=== PATIENT | female | born 1990 ===

== ENCOUNTER 2018-06-16 13:12 | Emergency (ER) | payer MEDICAID ==
[2018-06-16 13:29] VITALS: BMI 36.5
[2018-06-16 13:54] VITALS: BP 129/67; PULSE 73; RESP 18; TEMP 98; O2SAT 100
--- NOTE | 2018-06-16 14:21 | ED PDOC ---
Arrival/HPI - General Historian: Patient - History of Present Illness Narrative History of Present Illness (Text): 06/16/18 14:10 28 y o female PMhx anemia presents to the ED c/o vaginal spotting post- intercourse. Pt states that late last night she was having intercourse and not iced she was bleeding after, states she wiped a few drops of blood with a tissue. Bleeding stopped on own. Pt also reports additional episode of vaginal spotting this but denies soaking pad. Reports positive test at home on 06/08/18, but states she has not established care during this current with an OB-STAFF CONSULTANT. Denies lightheadedness/dizziness, fever, chills, chest pain, palpitations, sob, n/v/d/c, abd pain, urinary complaints, or other symptoms currently. LMP 05/06/18. PMHx: anemia (not on iron therapy currently); denies being sickle cell carrier PObHx: , 5 term pregnancies delivered vaginally full term with no complications, spontaneous Ab at 5 mos gestation in 2014 PSurgHx: D+C for miscarriage in 2014 at 5 months gestation (pt unsure of etiology of miscarriage) Allergies: NKDA Home meds: vitamins Fam hx: DM and HTN in grandparents, mom has sickle cell disease Soc hx: denies smoking, EtOH or illicit drug use Primary OB: [facility], pt follows with server software engineer Time/Duration: 24 hours Symptom Onset: Sudden Symptom Course: Intermittent Quality: Unable to Describe Severity Level: Mild Activities at Onset: Significant Context: Home <Aydin Mauro - Last Filed: 06/16/18 17:54> <Jareth Lopez - Last Filed: 06/19/18 09:53> - General Chief Complaint: Female Genitourinary Past Medical History - Provider Review Nursing Documentation Reviewed: Yes - Travel History Have you recently traveled outside [place] w/in the past 3 mons?: No - Reproductive Currently : Yes - Psychiatric Hx Substance Use: No - Surgical History Other/Comment: x 6 c sections - Anesthesia Hx Anesthesia: Yes Hx Anesthesia Reactions: No Hx Malignant Hyperthermia: No <Aydin Mauro - Last Filed: 06/16/18 17:54> Family/Social History - Physician Review Nursing Documentation Reviewed: Yes Family/Social History: Diabetes, Hypertension, Other (Sickle cell disease in mother) Smoking Status: Never Smoked Hx Alcohol Use: Yes Frequency of alcohol use: Socially Hx Substance Use: No <Aydin Mauro - Last Filed: 06/16/18 17:54> Allergies/Home Meds <Aydin Mauro - Last Filed: 06/16/18 17:54> <Jareth Lopez - Last Filed: 06/19/18 09:53> Allergies/Adverse Reactions: Allergies No Known Allergies Allergy (Verified 06/16/18 13:29) Review of Systems - Physician Review All systems were reviewed & negative as marked: Yes - Review of Systems Constitutional: Fatigue. absent: Weight Change, Fevers Eyes: absent: Vision Changes ENT: absent: Hearing Changes, Tinnitus Respiratory: absent: SOB, Cough, Wheezing Cardiovascular: absent: Chest Pain, Palpitations, Edema, Calf Pain, ADAMS Gastrointestinal: absent: Abdominal Pain, Stool Changes, Constipation, Diarrhea, Nausea, Vomiting, Appetite Changes, Anorexia Genitourinary Female: Vaginal Bleeding. absent: Dysuria, Frequency, Hematuria, Urine Output Changes, Vaginal Discharge Musculoskeletal: absent: Arthralgias, Back Pain, Myalgias Skin: absent: Rash Neurological: absent: Headache, Dizziness Endocrine: absent: Diaphoresis Hemo/Lymphatic: absent: Adenopathy <Aydin Mauro - Last Filed: 06/16/18 17:54> Physical Exam Vital Signs Reviewed: Yes Vital Signs Temp Pulse Resp BP Pulse Ox 06/16/18 13:12 98 F 73 18 129/67 100 Temperature: Afebrile Blood Pressure: Normal Pulse: Regular Respiratory Rate: Normal Appearance: Positive for: Well-Appearing, Non-Toxic, Comfortable Pain Distress: None Mental Status: Positive for: Alert and Oriented X 3 - Systems Exam Head: Present: Atraumatic, Normocephalic Pupils: Present: PERRL Extroacular Muscles: Present: EOMI Conjunctiva: Present: Normal Mouth: Present: Moist Mucous Membranes Neck: Present: Normal Range of Motion. No: JVD, Lymphadenopathy Respiratory/Chest: Present: Clear to Auscultation, Good Air Exchange. No: Respiratory Distress, Accessory Muscle Use, Wheezes, Rales, Rhonchi Cardiovascular: Present: Regular Rate and Rhythm, Normal S1, S2. No: Murmurs, Rub, Gallop Abdomen: Present: Normal Bowel Sounds. No: Tenderness, Distention, Peritoneal Signs, Rebound, Guarding, Mass/Organomegaly Genitourinary/Pelvic Exam: Present: Normal External Genitalia, Vaginal Discharge (Normal physiologic discharge). No: Vaginal Bleeding, Vaginal Lesions, Adenexal Tenderness, Adenexal Mass, Cervical Motion Tendernes, Cervical os Closed, Odor Back: Present: Normal Inspection. No: CVA Tenderness Upper Extremity: Present: Normal Inspection, Normal ROM, NORMAL PULSES, Capillary Refill < 2s, Norm 2-Pt Discrimination. No: Cyanosis, Edema, Temperature Abnormalties Lower Extremity: Present: Normal Inspection, NORMAL PULSES, Normal ROM, Neurovascularly Intact, Capillary Refill < 2 s. No: Edema, CALF TENDERNESS, Temperature Abnormalties Neurological: Present: GCS=15, CN II-XII Intact, Speech Normal, Motor Func Grossly Intact, Normal Sensory Function, Gait Normal Skin: Present: Warm, Dry, Normal Color. No: Rashes Psychiatric: Present: Alert, Oriented x 3, Normal Insight, Normal Concentration <Aydin Mauro - Last Filed: 06/16/18 17:54> Vital Signs Temp Pulse Resp BP Pulse Ox 06/16/18 13:12 98 F 73 18 129/67 100 <Jareth Lopez - Last Filed: 06/19/18 09:53> Medical Decision Making ED Course and Treatment: 06/16/18 14:29 28 y o female PMhx anemia, presents with post-coital bleeding, hx positive test at home on 06/08/18. No active vaginal bleeding noted on speculum exam. Plan: -Labs -U/a, urine preg test -Transvaginal U/s Will continue to monitor. 06/16/18 15:43 Informed by equipment engineering technician that pt eloped from ED without signing AMA forms. Staff to contact pt by phone to return to ED. - RAD Interpretation Radiology Orders: 06/16/18 14:09 TRANSVAGINAL [US] Stat <Aydin Mauro - Last Filed: 06/16/18 17:54> - Lab Interpretations Microbiology Results: Microbiology Results 06/16/18 14:30 Urine,Clean Catch Urine Culture - Final 10-50,000 CFU/ML. MULTIPLE SPECIES. PROBABLE CONTAMINATION. Lab Results: 06/16/18 15:09 06/16/18 15:09 Lab Results 06/16/18 15:09: Beta HCG, Quant 1598.10 H 06/16/18 15:09: Sodium 138, Potassium 3.9, Chloride 106, Carbon Dioxide 26, Anion Gap 10, BUN 14, Creatinine 0.7, Est GFR ( Amer) > 60, Est GFR (Non- Af Amer) > 60, Random Glucose 96, Calcium 8.8, Total Bilirubin 0.3, AST 22, ALT 25, Alkaline Phosphatase 51, Total Protein 6.9, Albumin 3.8, Globulin 3.1, Albumin/Globulin Ratio 1.3 06/16/18 15:09: WBC 8.0, RBC 3.95, Hgb 11.4 L, Hct 35.0 L, MCV 88.6, MCH 28.9, MCHC 32.6, RDW 14.3, Plt Count 291, MPV 11.1 H, Gran % 69.8 H, Lymph % (Auto) 23.8, [place] % (Auto) 4.5, Eos % (Auto) 1.8, Baso % (Auto) 0.1, Gran # 5.59, Lymph # (Auto) 1.9, [place] # (Auto) 0.4, Eos # (Auto) 0.1, Baso # (Auto) 0.01 06/16/18 14:30: Urine Color Yellow, Urine Appearance Clear, Urine pH 6.0, Ur Specific [place] >= 1.030, Urine Protein Negative, Urine Glucose (UA) Negative, Urine Ketones Negative, Urine Blood Negative, Urine Nitrate Negative, Urine Bilirubin Negative, Urine Urobilinogen 0.2, Ur Leukocyte Esterase Trace H, Urine RBC Negative, Urine WBC 1 - 3, Ur Epithelial Cells 3 - 4, Urine Bacteria Few, Urine HCG, Qual Positive - RAD Interpretation Radiology Orders: 06/16/18 14:09 OB TRANSVAGINAL [US] Stat <Jareth Lopez - Last Filed: 06/19/18 09:53> - PA / JOURNEYMAN LEVEL ACOUSTIC ANALYST / Resident Statement / has examined the patient and agrees with the treatment plan. (28 yr old female p/w postcoital vaginal spotting. Well appearing in NAD. Eloped. Staff called pts family: they will tell pt to return.) <Jareth Lopez - Last Filed: 06/19/18 09:53> Disposition/Present on Arrival - Present on Arrival Any Indicators Present on Arrival: No History of DVT/PE: No History of Uncontrolled Diabetes: No Urinary Catheter: No History of Decub. Ulcer: No History Surgical Site Infection Following: None - Disposition Have Diagnosis and Disposition been Completed?: Yes Disposition Time: 15:00 <Aydin Mauro - Last Filed: 06/16/18 17:54> <Jareth Lopez - Last Filed: 06/19/18 09:53> - Disposition Diagnosis: , PCB (post coital bleeding), UTI (urinary tract infection) during Disposition: ELOPEMENT - ER ONLY Condition: UNKNOWN Forms: [employer] (Scottish)
[2018-06-16 14:46] LABS: HCG,QUALITATIVE URINE POSITIVE (NEGATIVE); URINE APPEARANCE CLEAR (CLEAR); URINE BILIRUBIN NEGATIVE (NEGATIVE); URINE BLOOD NEGATIVE (NEGATIVE); URINE COLOR YELLOW (YELLOW); URINE GLUCOSE (UA) NEGATIVE (NEGATIVE); URINE LEUKOCYTE ESTERASE TRACE Leu/uL (NEGATIVE); URINE PROTEIN NEGATIVE mg/dL (<30 mg/dL); URINE UROBILINOGEN 0.2 E.U./dL (<1 E.U./dL)
[2018-06-16 14:54] LABS: URINE BACTERIA FEW (NEG); URINE RBC NEGATIVE /hpf (0-2)
[2018-06-16 15:15] LABS: BASO # 0.01 K/mm3 (0.0-2.0); BASO % 0.1 % (0.0-3.0); EOS # 0.1 (0.0-0.7); EOS % 1.8 % (1.5-5.0); GRAN # 5.59 (1.4-6.5); GRAN % 69.8 % (50.0-68.0); HEMOGLOBIN 11.4 g/dL (12.0-16.0); LYMPH # 1.9 (1.2-3.4); LYMPH % 23.8 % (22.0-35.0); MEAN CELL VOLUME 88.6 fl (80.0-105.0); MEAN CORPUSCULAR HEMOGLOBIN 28.9 pg (25.0-35.0); MEAN CORPUSCULAR HGB CONC 32.6 g/dl (31.0-37.0); MEAN PLATELET VOLUME 11.1 fl (7.0-11.0); MONO # 0.4 (0.1-0.6); MONO % 4.5 % (1.0-6.0); RBC 3.95 10^6/uL (3.5-6.1); RED CELL DISTRIBUTION WIDTH 14.3 % (11.5-14.5)
--- NOTE | 2018-06-16 15:15 | US ---
Date of service: 06/16/2018 HISTORY: Hx , post-coital bleeding; last menstrual period 05/06/2018 suggesting 5 week 6 day gestation. COMPARISON: None available. TECHNIQUE: Transabdominal and transvaginal pelvic ultrasound was performed with longitudinal and transverse images submitted for interpretation. FINDINGS: UTERUS: Measures 10.1 x 5.7 x 8.0 cm. Normal in size and appearance. No fibroid or other mass lesion seen. ENDOMETRIUM: The endometrium appears abnormal. A small fluid collection with apparent decidual reaction is appreciated within the endometrial cavity measuring 0.4 x 0.4 x 0.4 cm with a mean sac diameter of 0.4 cm cyst. No pole or yolk sac is appreciated. Surrounding inhomogeneity is appreciated including a hypoechoic area surrounded by a band of markedly increased echogenicity with a total measuring up to 2.6 cm thickness. This may reflect gross chorionic hemorrhage or failure of gestation with retained products of conception. Clinically correlate further. Early viable intrauterine gestation is not completely excluded. An ectopic gestation is not clearly identified. CERVIX: No cervical abnormality identified. Cervical length measures 3.6 cm RIGHT OVARY: Measures 2.4 x 1.7 x 2.5 cm. No solid mass. Normal flow. LEFT OVARY: Measures 2.7 x 2.2 x 2.7 cm. No solid mass. Normal flow. FREE FLUID: No significant free fluid noted. OTHER FINDINGS: None. IMPRESSION: Abnormal intrauterine findings are identified as discussed above which could reflect early viable intrauterine gestation however no yolk sac or pole is defined at this time. Age of potential gestation, if viable, would be less than 5 weeks which may be concordant with LMP derived dates. Prominent gestational related hemorrhage may be present. Alternative diagnosis would be failure of gestation with prominent retained products of conception. No ectopic pattern demonstrated but this is not completely excluded either with pseudo gestational sac. Follow-up serial beta HCG analysis as well as one-week repeat transvaginal pelvic ultrasound.
[2018-06-16 15:31] LABS: ALB/GLOB RATIO 1.3 (1.1-1.8); ALBUMIN 3.8 g/dL (3.0-4.8); ALT/SGPT 25 U/L (7-56); AST/SGOT 22 U/L (14-36); BLOOD UREA NITROGEN 14 mg/dL (7-21); CALCIUM 8.8 mg/dL (8.4-10.5); GFR NON-AFRICAN AMERICAN > 60
== END 2018-06-16 15:45 | disposition left against medical advice (07) ==
LOC: ED 13:12
DX: O23.40 Unspecified infection of urinary tract in pregnancy, unspecified trimester (principal); N93.0 Postcoital and contact bleeding; Z3A.00 Weeks of gestation of pregnancy not specified

== ENCOUNTER 2018-06-16 16:28 | Emergency (ER) | payer MEDICAID ==
[2018-06-16 16:28] VITALS: BMI 36.5
--- NOTE | 2018-06-16 17:20 | ED PDOC ---
Arrival/HPI - General Historian: Patient - History of Present Illness Narrative History of Present Illness (Text): 06/16/18 17:41 28 y o female PMhx anemia presents to the ED c/o vaginal spotting post- intercourse. Pt states that late last night she was having intercourse and not iced she was bleeding after, states she wiped a few drops of blood with a tissue. Bleeding stopped on own. Pt also reports additional episode of vaginal spotting this but denies soaking pad. Reports positive test at home on 06/08/18, but states she has not established care during this current with an OB-DEVELOPMENTAL SERVICES WORKER. Denies lightheadedness/dizziness, fever, chills, chest pain, palpitations, sob, n/v/d/c, abd pain, urinary complaints, or other symptoms currently. LMP 05/06/18. Pt was worked up in ED earlier this afternoon, had bloodwork, U/a and Transvaginal U/s performed. Pt eloped at time from ED without signing AMA forms because she had to curing pickling packer her daughter from school. Was called by ED staff to return to ED for results. Not having further episodes of vaginal bleeding/spotting currently. PMHx: anemia (not on iron therapy currently); denies being sickle cell carrier PObHx: , 5 term pregnancies delivered vaginally full term with no complications, spontaneous Ab at 5 mos gestation in 2014 PSurgHx: D+C for miscarriage in 2014 at 5 months gestation (pt unsure of etiology of miscarriage) Allergies: NKDA Home meds: vitamins Fam hx: DM and HTN in grandparents, mom has sickle cell disease Soc hx: denies smoking, EtOH or illicit drug use Primary OB: [facility], pt follows with mural painter Time/Duration: Prior to Arrival Symptom Course: Resolved Context: Home <Aydin Mauro - Last Filed: 06/16/18 17:40> <Jareth Lopez - Last Filed: 06/19/18 13:03> - General Chief Complaint: Female Genitourinary Time Seen by Provider: 06/16/18 16:32 Past Medical History - Provider Review Nursing Documentation Reviewed: Yes - Travel History Have you recently traveled outside [place] w/in the past 3 mons?: No - Psychiatric Hx Substance Use: No - Surgical History Other/Comment: x 6 c sections - Anesthesia Hx Anesthesia: Yes Hx Anesthesia Reactions: No Hx Malignant Hyperthermia: No <Aydin Mauro - Last Filed: 06/16/18 17:40> Family/Social History - Physician Review Nursing Documentation Reviewed: Yes Family/Social History: No Known Family HX Smoking Status: Never Smoked Hx Alcohol Use: Yes Hx Substance Use: No <Aydin Mauro - Last Filed: 06/16/18 17:40> Allergies/Home Meds <Aydin Mauro - Last Filed: 06/16/18 17:40> <Jareth Lopez - Last Filed: 06/19/18 13:03> Allergies/Adverse Reactions: Allergies No Known Allergies Allergy (Verified 06/16/18 13:29) Review of Systems - Physician Review All systems were reviewed & negative as marked: Yes - Review of Systems Genitourinary Female: absent: Dysuria, Frequency, Urine Output Changes, Vaginal Bleeding, Vaginal Discharge Musculoskeletal: absent: Back Pain <Aydin Mauro - Last Filed: 06/16/18 17:40> Physical Exam Vital Signs Reviewed: Yes Temperature: Afebrile Blood Pressure: Normal Pulse: Regular Respiratory Rate: Normal Appearance: Positive for: Well-Appearing, Non-Toxic, Comfortable Pain Distress: None Mental Status: Positive for: Alert and Oriented X 3 - Systems Exam Head: Present: Atraumatic, Normocephalic Pupils: Present: PERRL Extroacular Muscles: Present: EOMI Conjunctiva: Present: Normal Mouth: Present: Moist Mucous Membranes Neck: Present: Normal Range of Motion. No: JVD, Lymphadenopathy Respiratory/Chest: Present: Clear to Auscultation, Good Air Exchange. No: Respiratory Distress, Accessory Muscle Use, Wheezes, Rales, Rhonchi Cardiovascular: Present: Regular Rate and Rhythm, Normal S1, S2. No: Murmurs, Rub, Gallop Abdomen: Present: Normal Bowel Sounds. No: Tenderness, Distention, Rebound, Mass/Organomegaly Genitourinary/Pelvic Exam: Present: Other (Deferred by patient) Upper Extremity: Present: Normal Inspection, Normal ROM, NORMAL PULSES, Neurovascularly Intact, Capillary Refill < 2s. No: Cyanosis, Edema, Temperature Abnormalties Lower Extremity: Present: Normal Inspection, NORMAL PULSES, Normal ROM, Neurovascularly Intact, Capillary Refill < 2 s. No: Edema, Tenderness Neurological: Present: GCS=15, CN II-XII Intact, Speech Normal, Motor Func G rossly Intact Skin: Present: Warm, Dry, Normal Color. No: Rashes Psychiatric: Present: Alert, Oriented x 3, Normal Insight, Normal Concentration <Aydin Mauro - Last Filed: 06/16/18 17:40> Vital Signs Temp Pulse Resp BP Pulse Ox 06/16/18 17:40 98 F 89 18 134/74 100 <Jareth Lopez - Last Filed: 06/19/18 13:03> Medical Decision Making ED Course and Treatment: 06/16/18 17:45 28 y o female PMhx anemia, presents to ED for results of bloodwork and Transvaginal U/s. Discussed with pt that no visible IUP was seen on Transvaginal U/s, even though urine test is positive. Quantitiative beta-HcG indeterminate zone, advised pt that this may be either an early or a non-viable . Ectopic cannot be ruled out at this time. Instructed pt to follow-up in 48 hrs at [facility] for repeat beta HcG. Case discussed with OB attending air traffic control equipment repairer Dr. Peñaloza, who is in agreement with plan. Pt prescribed Macrobid bid for next 7 days for asymptomatic bacteriuria. All questions and concerns addressed with pt and she is agreeable to plan. Pt to be discharged to home at this time. <Aydin Mauro - Last Filed: 06/16/18 17:40> Disposition/Present on Arrival - Present on Arrival Any Indicators Present on Arrival: No History of DVT/PE: No History of Uncontrolled Diabetes: No Urinary Catheter: No History of Decub. Ulcer: No History Surgical Site Infection Following: None - Disposition Have Diagnosis and Disposition been Completed?: Yes Disposition Time: 17:54 <Aydin Mauro - Last Filed: 06/16/18 17:40> <Jareth Lopez - Last Filed: 06/19/18 13:03> - Disposition Diagnosis: , PCB (post coital bleeding), UTI (urinary tract infection) during Disposition: HOME/ ROUTINE Condition: IMPROVED Discharge Instructions (ExitCare): Urinary Tract Infection, Adult (DC), Asymptomatic Bacteriuria Print Language: UKRAINIAN Additional Instructions: Please follow-up at [facility] in 48 hrs for repeat beta-hcG. Please take antibiotic as prescribed twice daily for the next 7 days. Should your symptoms recur or worsen, please call your primary care physician or report to your nearest emergency department. Prescriptions: Nitrofurantoin Macrocrystals [Macrobid] 100 mg PO BID #14 cap Forms: [employer] (C[place] Verdean)
[2018-06-16 17:40] VITALS: BP 134/74; PULSE 89; RESP 18; TEMP 98; O2SAT 100
== END 2018-06-16 17:45 | disposition home or self-care (01) ==
LOC: ED 16:28
DX: O23.40 Unspecified infection of urinary tract in pregnancy, unspecified trimester (principal); N93.0 Postcoital and contact bleeding; Z3A.00 Weeks of gestation of pregnancy not specified

== ENCOUNTER 2018-06-28 15:29 | Emergency (ER) | payer MEDICAID ==
[2018-06-28 15:30] VITALS: BMI 36.5
[2018-06-28 15:32] VITALS: BP 138/89; PULSE 93; RESP 18; TEMP 98.2; O2SAT 98
--- NOTE | 2018-06-28 15:52 | ED PDOC ---
Arrival/HPI - General Time Seen by Provider: 06/28/18 15:34 Historian: Patient - History of Present Illness Associated Symptoms (Text): 06/28/18 15:47 patient reports that she wants her levels checked. Patient was seen in the emergency department approximately 12 days ago and again 10 days ago. She had had some vaginal spotting at that initial visit. There has been no further bleeding. Her initial beta Quant was approximately 1600. Her follow-up 2 days later was approximately 2100. She continues to have no bleeding or discharge. There is no abdominal pain or cramping. No nausea vomiting or diarrhea. No genitourinary symptoms. She is refusing to be examined by a male, even with a nurse in the room as a injection maintenance technician. She states that she was directed to the emergency department have a repeat beta Quant. She was unable to tell me who directed her to the emergency department. Her RODENT EXTERMINATOR is in [facility]. LMP she believes it is 05/06. 7 para 5 abortions 1. She is comfortable and in no distress. She had a transvaginal ultrasound at her first emergency department visit which did not show an IUP. I discussed with her that because she was having no pain and no bleeding or spotting and no cramping at this time that a beta Quant was not indicated. She should follow-up with her RODENT EXTERMINATOR. Follow up in the emergency department as needed. Past Medical History - Psychiatric Hx Substance Use: No - Surgical History Other/Comment: x 6 c sections - Anesthesia Hx Anesthesia: Yes Hx Anesthesia Reactions: No Hx Malignant Hyperthermia: No Family/Social History - Physician Review Nursing Documentation Reviewed: Yes Family/Social History: Unknown Family HX Smoking Status: Never Smoked Hx Alcohol Use: Yes Hx Substance Use: No Allergies/Home Meds Allergies/Adverse Reactions: Allergies No Known Allergies Allergy (Verified 06/16/18 13:29) Review of Systems - Physician Review All systems were reviewed & negative as marked: Yes Physical Exam Vital Signs Temp Pulse Resp BP Pulse Ox 06/28/18 15:30 98.2 F 93 H 18 138/89 98 Temperature: Afebrile Blood Pressure: Normal Pulse: Regular Respiratory Rate: Normal Appearance: Positive for: Well-Appearing, Non-Toxic, Comfortable Pain Distress: None Mental Status: Positive for: Alert and Oriented X 3 - Systems Exam Abdomen: No: Tenderness, Distention, Peritoneal Signs, Rebound, Guarding Genitourinary/Pelvic Exam: Present: Other (refused) Disposition/Present on Arrival - Present on Arrival Any Indicators Present on Arrival: No History of DVT/PE: No History of Uncontrolled Diabetes: No Urinary Catheter: No History of Decub. Ulcer: No History Surgical Site Infection Following: None - Disposition Have Diagnosis and Disposition been Completed?: Yes Diagnosis: Disposition: HOME/ ROUTINE Disposition Time: 15:53 Patient Plan: Discharge Condition: GOOD Discharge Instructions (ExitCare): Care
== END 2018-06-28 18:16 | disposition home or self-care (01) ==
LOC: ED 15:29
DX: O26.899 Other specified pregnancy related conditions, unspecified trimester (principal); Z3A.00 Weeks of gestation of pregnancy not specified

== ENCOUNTER 2018-07-28 13:48 | Emergency (ER) | payer MEDICAID ==
[2018-07-28 13:51] VITALS: BMI 36.5
[2018-07-28 14:28] VITALS: PULSE 75; RESP 18; TEMP 98.2
--- NOTE | 2018-07-28 14:52 | ED PDOC ---
Arrival/HPI - General Chief Complaint: Headache Historian: Patient - History of Present Illness Narrative History of Present Illness (Text): 07/28/18 14:48 28 y/o female, no significant pmh, nkda, c/o headache s/p hit on the shelf x 1 day. Pt. was in the bathroom, accidentally hit on the rt. parietal region, no LOC, no blurry vision, able to recall the whole event, no numbness or tingling, no chest pain or shortness of breath, no palpitation, no change in vision, no other medical or psychological complaints. Past Medical History - Provider Review Nursing Documentation Reviewed: Yes - Psychiatric Hx Substance Use: No - Surgical History Other/Comment: x 6 c sections. miscarriage - Anesthesia Hx Anesthesia: Yes Hx Anesthesia Reactions: No Hx Malignant Hyperthermia: No Family/Social History - Physician Review Nursing Documentation Reviewed: Yes Family/Social History: Unknown Family HX Smoking Status: Never Smoked Hx Alcohol Use: Yes Hx Substance Use: No Allergies/Home Meds Allergies/Adverse Reactions: Allergies No Known Allergies Allergy (Verified 07/02/18 13:08) Review of Systems - Review of Systems Constitutional: absent: Fatigue, Fevers ENT: absent: Hearing Changes Respiratory: absent: SOB, Cough Cardiovascular: absent: Chest Pain Gastrointestinal: absent: Abdominal Pain, Nausea, Vomiting Musculoskeletal: absent: Arthralgias, Back Pain Skin: absent: Rash Neurological: Headache. absent: Dizziness Psychiatric: absent: Anxiety, Depression Physical Exam Vital Signs Reviewed: Yes Vital Signs Temp Pulse Resp BP Pulse Ox 07/28/18 13:51 98.2 F 75 18 119/77 99 Temperature: Afebrile Blood Pressure: Normal Pulse: Regular Respiratory Rate: Normal Appearance: Positive for: Well-Appearing, Non-Toxic, Comfortable Pain Distress: Mild Mental Status: Positive for: Alert and Oriented X 3 - Systems Exam Head: Present: Normocephalic, Tenderness (rt. parietal region). No: Swelling, Ecchymosis, Abrasion, Laceration Pupils: Present: PERRL Extroacular Muscles: Present: EOMI Conjunctiva: Present: Normal Ears: Present: NORMAL TM, Normal Canal. No: Erythema Mouth: Present: Moist Mucous Membranes Pharnyx: No: ERYTHEMA, EXUDATE, TONSILS ENLARGED Nose (External): Present: Atraumatic. No: Abrasion, Contusion, Laceration Nose (Internal): Present: Normal Inspection, No Active Bleeding. No: Rhinorrhea, Septal Hematoma, Epistaxis Neck: Present: Normal Range of Motion. No: MIDLINE TENDERNESS, Paraspinal Tende rness Respiratory/Chest: Present: Clear to Auscultation, Good Air Exchange. No: Respiratory Distress, Accessory Muscle Use Cardiovascular: Present: Regular Rate and Rhythm, Normal S1, S2. No: Murmurs Abdomen: No: Tenderness, Distention, Peritoneal Signs Back: Present: Normal Inspection. No: CVA Tenderness, Midline Tenderness, Paraspinal Tenderness Upper Extremity: Present: Normal Inspection, Normal ROM, NORMAL PULSES, Neurovascularly Intact, Capillary Refill < 2s. No: Cyanosis, Edema, Deformity Lower Extremity: Present: Normal Inspection, NORMAL PULSES, Normal ROM, Neurovascularly Intact, Capillary Refill < 2 s. No: Edema, Tenderness, Sw elling, Deformity Neurological: Present: GCS=15, CN II-XII Intact, Speech Normal, Motor Func Grossly Intact, Gait Normal, Memory Normal, Other (normal finger to nose test, normal heel to berrios test) Skin: Present: Warm, Dry, Normal Color. No: Rashes Psychiatric: Present: Alert, Oriented x 3, Normal Insight, Normal Concentration Medical Decision Making ED Course and Treatment: 07/28/18 14:51 -I explained the CT is not emergently indicated at this time, she would like to be discharged and precautions all explained. I advised her to come back to the ER for any new or worsening signs or symptoms. -Discharge home with tylenol, ice compression, follow up wit your own pmd and neurologist in 2 days, return to the ER for any new or worsening signs or symptoms including but not limited to blurry vision/dizziness/severe headache any neurological complaints. - PA / PAPER MAKER / Resident Statement /DO has reviewed & agrees with the documentation as recorded. Disposition/Present on Arrival - Present on Arrival Any Indicators Present on Arrival: No History of DVT/PE: No History of Uncontrolled Diabetes: No Urinary Catheter: No History of Decub. Ulcer: No History Surgical Site Infection Following: None - Disposition Have Diagnosis and Disposition been Completed?: Yes Diagnosis: Head injury Disposition: HOME/ ROUTINE Disposition Time: 14:53 Patient Plan: Discharge Condition: GOOD Additional Instructions: -Discharge home with tylenol, ice compression, follow up wit your own pmd and neurologist in 2 days, return to the ER for any new or worsening signs or symptoms including but not limited to blurry vision/dizziness/severe headache any neurological complaints. Prescriptions: Acetaminophen [Pain Relief Extra Strength] 500 mg PO QID PRN #30 tablet PRN Reason: Other Referrals: Demetra Kathleen MD [Staff Provider] - Follow up with primary [facility] [place]] - Follow up with primary Forms: [facility] ([place]ux[place]ish), WORK NOTE, SCHOOL NOTE
[2018-07-28 19:32] VITALS: BP 120/77; O2SAT 100
== END 2018-07-28 15:00 | disposition home or self-care (01) ==
LOC: ED 13:48
DX: S09.90XA Unspecified injury of head, initial encounter (principal); W22.09XA Striking against other stationary object, initial encounter